=== PATIENT | female | born 1960 | race Native Hawaiian/Other Pacific Islander ===

== ENCOUNTER 2017-09-29 21:22 | Emergency (ER) | payer OTHER ==
[~2017-09-29] VITALS: Ht 162.6 cm; Wt 121.1 kg
[~2017-09-29 21:22] MED LIST: ALPR0.5T24 PO; CARV12.5 PO; HYDROXYZ HCL50 MG PO; LAMICTAL200 MG OR; LIPITOR20 MG PO; METF500T PO; MOBIC15 MG PO; SOMA350 MG PO; TRAM50TA PO
[2017-09-29 21:48] LABS: PLATELET COUNT 233 K/uL (152-353)
[2017-09-29 22:06] LABS: POTASSIUM 3.8 mmol/L (3.6-5.2)
[2017-09-29 22:45] VITALS: BP 190/88; TEMP 98.3
== END 2017-09-29 22:53 ==
LOC: ED 21:22
DX: J45.901 Unspecified asthma with (acute) exacerbation (principal); E83.42 Hypomagnesemia; R25.2 Cramp and spasm; E11.9 Type 2 diabetes mellitus without complications
CPT/HCPCS: 36415; 80053; 83735; 85027; 94664; 96374; 99284; J2930

== ENCOUNTER 2018-08-31 11:58 | Outpatient (CLI) | payer BC, OTHER | END 2018-08-31 22:19 | disposition home or self-care (01) | LOC: RAD 11:58 | DX: M79.642 Pain in left hand (principal) ==

== ENCOUNTER 2018-09-01 11:52 | Outpatient (CLI) | payer BC, OTHER ==
[2018-09-01 12:09] LABS: PLATELET COUNT 183 K/uL (152-353)
[2018-09-01 12:52] LABS: POTASSIUM 4.3 mmol/L (3.6-5.2)
== END 2018-09-01 23:43 | disposition home or self-care (01) ==
LOC: LABW 11:52
PROVIDERS: Internal Medicine
DX: E11.9 Type 2 diabetes mellitus without complications (principal)
CPT/HCPCS: 36415; 80053; 80061; 81000; 82043; 82570; 83036; 84439; 84443; 85027

== ENCOUNTER 2019-02-03 16:21 | Outpatient (CLI) | payer BC, OTHER ==
[2019-02-03 17:09] LABS: PLATELET COUNT 202 K/uL (152-353)
[2019-02-03 17:48] LABS: POTASSIUM 3.9 mmol/L (3.6-5.2)
== END 2019-02-03 23:41 | disposition home or self-care (01) ==
LOC: LAB 16:21
PROVIDERS: Internal Medicine
DX: R53.83 Other fatigue (principal); I10 Essential (primary) hypertension; R16.0 Hepatomegaly, not elsewhere classified; E11.42 Type 2 diabetes mellitus with diabetic polyneuropathy; Z13.1 Encounter for screening for diabetes mellitus; E03.9 Hypothyroidism, unspecified; Z11.59 Encounter for screening for other viral diseases; K75.9 Inflammatory liver disease, unspecified; E78.49 Other hyperlipidemia
CPT/HCPCS: 36415; 80048; 80061; 80076; 82043; 82103; 82105; 82390; 82570; 82728; 83516; 83540; 83550; 84439; 84443; 85027; 86376; 86803; 87340; 87522

== ENCOUNTER 2019-06-02 12:52 | Emergency (ER) | payer BC, OTHER ==
[~2019-06-02] VITALS: Ht 162.6 cm; Wt 132.9 kg
[2019-06-02 14:01] LABS: PLATELET COUNT 190 K/uL (152-353)
[2019-06-02 14:38] LABS: POTASSIUM 4.2 mmol/L (3.6-5.2)
[2019-06-02 15:23] VITALS: BP 154/61; TEMP 97.3
== END 2019-06-02 15:23 | disposition home or self-care (01) ==
LOC: ED 12:52
PROVIDERS: Emergency Medicine
DX: M17.12 Unilateral primary osteoarthritis, left knee (principal)
CPT/HCPCS: 36415; 80053; 85027; 85379; 99283

== ENCOUNTER 2020-07-22 15:33 | Emergency (ER) | payer BC, OTHER ==
[~2020-07-22] VITALS: Ht 162.6 cm; Wt 104.8 kg
[2020-07-22 17:26] VITALS: BP 122/68; TEMP 97.3
== END 2020-07-22 17:29 | disposition home or self-care (01) ==
LOC: ED 15:33
DX: H60.12 Cellulitis of left external ear (principal)
CPT/HCPCS: 96372; 99282; J0696

== ENCOUNTER 2020-11-10 14:19 | Outpatient (CLI) | payer BC, OTHER | END 2020-11-10 21:50 | disposition home or self-care (01) | LOC: CT 14:19 | PROVIDERS: ATTEND Internal Medicine | DX: S09.93XA Unspecified injury of face, initial encounter (principal) ==

== ENCOUNTER 2021-03-06 16:07 | Emergency (ER) | payer BC, OTHER ==
[~2021-03-06] VITALS: Ht 162.6 cm; Wt 98.0 kg
[2021-03-06 17:13] LABS: PLATELET COUNT 207 K/uL (152-353)
[2021-03-06 18:07] LABS: POTASSIUM 3.8 mmol/L (3.6-5.2); SODIUM 141 mmol/L (136-145)
[2021-03-06 19:15] VITALS: BP 157/89; TEMP 98
== END 2021-03-06 19:15 | disposition home or self-care (01) ==
LOC: ED 16:07
PROVIDERS: Family Medicine
DX: J44.9 Chronic obstructive pulmonary disease, unspecified (principal); R05 Cough; M54.89 Other dorsalgia
CPT/HCPCS: 80053; 83880; 84484; 85027; 85379; 93005; 94664; 96372; 99283; J2930

== ENCOUNTER 2021-08-14 13:10 | Outpatient (CLI) | payer BC, OTHER | END 2021-08-14 19:04 | disposition home or self-care (01) | LOC: RAD 13:10 | PROVIDERS: ATTEND Family Medicine | DX: Z20.822 Contact with and (suspected) exposure to COVID-19 (principal) ==

== ENCOUNTER 2022-01-16 18:29 | Emergency (ER) | payer BC, OTHER ==
[~2022-01-16] VITALS: Ht 162.6 cm; Wt 102.5 kg
[2022-01-16 19:43] LABS: PLATELET COUNT 213 K/uL (152-353)
[2022-01-16 19:57] LABS: POTASSIUM 4.2 mmol/L (3.6-5.2)
[2022-01-16 22:40] VITALS: BP 126/94; TEMP 97
== END 2022-01-16 22:40 | disposition home or self-care (01) ==
LOC: ED 18:29
PROVIDERS: Emergency Medicine
DX: E86.0 Dehydration (principal)
CPT/HCPCS: 80053; 81000; 84484; 85027; 93005; 96360; 96361; 99284

== ENCOUNTER 2022-01-28 15:10 | Emergency (ER) | payer BC, OTHER ==
[~2022-01-28] VITALS: Ht 162.6 cm; Wt 102.5 kg
[2022-01-28 16:08] LABS: PLATELET COUNT 178 K/uL (152-353)
[2022-01-28 16:22] LABS: POTASSIUM 4.3 mmol/L (3.6-5.2)
[2022-01-28 17:07] VITALS: BP 127/72
[2022-01-28 17:10] VITALS: TEMP 98.9
== END 2022-01-28 17:12 | disposition home or self-care (01) ==
LOC: ED 15:10
PROVIDERS: Emergency Medicine Emergency Medical Services
DX: S20.219A Contusion of unspecified front wall of thorax, initial encounter (principal); S16.1XXA Strain of muscle, fascia and tendon at neck level, initial encounter; V89.2XXA Person injured in unspecified motor-vehicle accident, traffic, initial encounter; Y92.89 Other specified places as the place of occurrence of the external cause
CPT/HCPCS: 80048; 84484; 85027; 93005; 96360; 99284

== ENCOUNTER 2023-03-24 16:08 | Outpatient (CLI) | payer BC, OTHER | END 2023-03-24 19:00 | disposition home or self-care (01) | LOC: LABW 16:08 | PROVIDERS: ATTEND Nurse Practitioner Family | DX: U07.1 COVID-19 (principal) | CPT/HCPCS: 36415; 80053 ==